=== PATIENT | female | born 1955 | race Caucasian/White ===

== ENCOUNTER → 2017-09-04 | Outpatient (CLI) | payer OTHER ==
--- NOTE | 2017-09-04 12:13 | BD ---
EXAMINATION TYPE: Axial Bone Density DATE OF EXAM: 09/04/2017 COMPARISON: NONE CLINICAL HISTORY: Height: 65.5 Weight: 133.9 FRAX RISK QUESTIONS: Alcohol (3 or more units per day): no Family History (Parent hip fracture): no Glucocorticoids (More than 3mos): no (Ex: prednisone, prednisolone, methylprednisolone, dexamethasone, and hydrocortisone). History of Fracture in Adulthood: no Secondary Osteoporosis: 1. Type 1 Diabetes: no 2. Hyperthyroidism: no 3. Menopause before 45: yes 4. Malnutrition: no 5. Chronic liver disease: no Rheumatoid Arthritis: no Current Tobacco Use: no RISK FACTORS HISTORY OF: Family History of Osteoporosis: unsure Active: yes Diet low in dairy products/other sources of calcium: no Postmenopausal woman: hysterectomy age 38 Lost more than 2 inches in height since high school: no Frequent falls: no MEDICATIONS: none Additional History: EXAM MEASUREMENTS: Bone mineral densitometry was performed using the [employer] System. Bone mineral density as measured about the Lumbar spine is: ----- L1-L4(G/cm2): 0.815 T Score Values are as follows: ----- L2: -3.2 ----- L3: -3.4 ----- L4: -2.9 ----- L1-L4: -3.0 Bone mineral density : baseline Bone mineral density about the R hip (g/cm2): 0.601 Bone mineral density about the L hip (g/cm2): 0.616 T Score values are as follows: -----R Neck: -3.1 -----L Neck: -2.7 -----R Total: -3.0 -----L Total: -2.9 Bone mineral density : baseline IMPRESSION: Osteoporosis (T Score less than -2.5). There is increased fracture risk and therapy is usually indicated based on age. Re-Screen 1-2 years. NOTE: T-SCORE=SD OF THE YOUNG ADULT MEAN.
--- NOTE | 2017-09-07 08:15 | USB ---
Reason for exam: clinical finding. History: Silicone gel implants in both breasts, 1962. Indicated problem(s): palpable abnormality in both breasts. Physical Findings: Nurse Summary: bilateral BB's placed upper breast at mastectomy anterior aspect of implants, bilateral firm implants (nurse ts). US Breast BILAT Right complete breast ultrasound includes all four quadrants, the retroareolar region and axilla. Finding demonstrates no cystic or solid lesion seen. Left complete breast ultrasound includes all four quadrants, the retroareolar region and axilla. Finding demonstrates no cystic or solid lesion seen. Bilateral palpable produced the appearance of silicone leakage. These results were verbally communicated with the patient and result sheet given to the patient on 09/06/17. ASSESSMENT: Probably benign, BI-RAD 3 (correlate) RECOMMENDATION: Clinical management of both breasts. Manage on a clinical basis with regard to leakage or capsular distortion can be confirmed with MRI if desired.
== END | disposition home or self-care (01) ==
LOC: RADBDWWP 08:58
PROVIDERS: ATTEND Internal Medicine Geriatric Medicine
DX: Z01.419 Encounter for gynecological examination (general) (routine) without abnormal findings (principal); N63.0 Unspecified lump in unspecified breast; M81.0 Age-related osteoporosis without current pathological fracture
CPT/HCPCS: 77080